=== PATIENT | female | born 1940 | race Two or more races ===

== ENCOUNTER 2017-08-19 12:35 | Emergency (ER) | payer OTHER ==
[2017-08-19 12:41] VITALS: BP 145/60; PULSE 64; TEMP 98.5; BMI 25.4
[2017-08-19] MEDS ORDERED: DIPHTH,PERTUSS(ACELL),TET 0.5 ML DISP.SYRIN IM ONE (13:01)
--- NOTE | 2017-08-19 13:15 | PDOC ---
History of Present Illness - General Chief Complaint: Injury Stated Complaint: FALL Time Seen by Provider: 08/19/17 12:45 History Source: Patient Exam Limitations: No Limitations - History of Present Illness Initial Comments: 08/19/17 16:33 stumbled with multiple heavy bags in her hands falling forward while attempting to get on bus. Patient landed on right wrist denies bleeding from nose or ears, denies any mental status changes. Denies LOC, denies nausea or vomiting. Is unable to flex and extend right wrist, has some mild tenderness to her left hand, and incurred a stellate laceration to her right upper lip through the vermilion border. Patient denies taking any type of anticoagulant or blood thinner Occurred: reports: just prior to arrival, this afternoon Severity: reports: moderate Pain Location: reports: face, upper extremity (right wrist, left hand) Method of Injury: Yes: fall Modifying Factors: improves with: cold therapy Loss of Consciousness: no loss of consciousness Associated Symptoms (Fall): headache Past History - Travel Traveled outside of the country in the last 30 days: No Close contact w/someone who was outside of country & ill: No - Past Medical History Allergies/Adverse Reactions: Allergies Allergy/AdvReac Type Severity Reaction Status Date / Time aspirin Allergy Severe Nausea Verified 08/19/17 13:27 Penicillins Allergy Severe Nausea Verified 08/19/17 13:27 Home Medications: Ambulatory Orders Acetaminophen W/ Codeine #3 [Tylenol # 3] 1 combo PO Q4H PRN #14 tablet MDD 6 Clindamycin [Cleocin -] 300 mg PO TID #21 capsule 08/19/17 COPD: No Hypercholesterolemia: Yes - Suicide/Smoking/Psychosocial Hx Smoking History: Never smoked Have you smoked in the past 12 months: No Information on smoking cessation initiated: No Hx Alcohol Use: No Drug/Substance Use Hx: No Substance Use Type: None Trauma Specific PMHX - Complaint Specific PMHX Back Injury: No Neck Injury: No Review of Systems - Review of Systems Able to Perform ROS?: Yes Is the patient limited Faroese proficient: Yes Constitutional: Yes: Symptoms Reported, See HPI, Malaise HEENTM: Yes: Symptoms Reported, See HPI, Mouth Pain, Mouth Swelling Respiratory: No: Symptoms reported ABD/GI: No: Symptoms Reported Musculoskeletal: Yes: Symptoms Reported, See HPI, Joint Pain (right wrist) Integumentary: Yes: Symptoms Reported, See HPI, Bruising, Flushing (stellate laceration to right upper lip), Lesions All Other Systems: Reviewed and Negative *Physical Exam - Vital Signs Last Vital Signs Temp Pulse Resp BP Pulse Ox 98.5 F 64 20 145/60 98 08/19/17 12:39 08/19/17 12:39 08/19/17 12:39 08/19/17 12:39 08/19/17 12:39 - Physical Exam General Appearance: Yes: Nourished, Appropriately Dressed, Apparent Distress, Mild Distress, Moderate Distress HEENT: positive: TMs Normal, Rhinorrhea, Other (stellate laceration with avulsion to upper right lip with stellate lack to inner gingival surface, probable cause from dental injury. Teeth are intact without any chipping or obvious loosening. Has full range of motion of jaw and TMJ. Nose is mildly tender but has no drainage from nose either nostril, no crepitus or step-offs along bridge, no orbital tenderness. Negative EOM.) Neck: negative: Tender Respiratory/Chest: positive: Lungs Clear Gastrointestinal/Abdominal: positive: Soft Extremity: positive: Normal Capillary Refill, Swelling, Other (deformity and immobility to right wrist, FROM to fingers with good sensation however unable to flex and extend at wrist joint with some deformity at distal radius and ulna. Pulses are palpable). 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 NML intact, Fully Oriented, Alert, Normal Mood/ Affect, Normal Response, Motor Strength 5/5 Procedures - Splinting Splint Location: Right: Wrist (dorsal ortho glass splint placed with sling) - Laceration/Wound Repair Right Lip Wound Length: to 2.5 cm Wound Explored: clean Wound's Depth, Shape: stellate Irrigated w/ Saline: Yes Betadine Prep: Yes Anesthesia: 1% Lidocaine w/ Epi Wound Repaired With: Sutures Suture Size/Type: 5:0 Number of Sutures: 5 Deep Layer Suture Size/Type: gut ED Treatment Course - RADIOLOGY Radiology Studies Ordered: Category Date Time Status WRIST W/HAND-LEFT* [RAD] Stat Radiology 08/19/17 13:00 Ordered Progress Note - Progress Note Progress Note: Status post fall with multiple contusions, stellate lip laceration that was repaired by myself. We'll start on oral clindamycin to cover oral pathogens with gum lac, right wrist fracture that was splinted. Discussed case with Dr. Antony who recommended splinting and will see patient this week for casting. *DC/Admit/Observation/Transfer Diagnosis at time of Disposition: Contusion, multiple sites Wrist fracture, right Qualifiers: Encounter type: initial encounter Fracture type: closed Qualified Code(s): S62.101A - Fracture of unspecified carpal bone, right wrist, initial encounter for closed fracture Laceration of lip Qualifiers: Encounter type: initial encounter Qualified Code(s): S01.511A - Laceration without foreign body of lip, initial encounter - Discharge Dispostion Disposition: HOME Condition at time of disposition: Stable Admit: No - Prescriptions Prescriptions: Acetaminophen W/ Codeine #3 [Tylenol # 3] 1 combo PO Q4H PRN #14 tablet MDD 6 PRN Reason: Pain Clindamycin [Cleocin -] 300 mg PO TID #21 capsule - Referrals Referrals: Asad Momin MD [Staff Physician] - - Patient Instructions Printed Discharge Instructions: DI for Wrist Fracture Additional Instructions: Rest, ice to area on and off for 15 minutes 4-6 times a day Avoid heavy lifting or exercise until pain and swelling is resolved or until further directed Keep area highly elevated to reduce swelling Use splints/Lauri wrap as directed Followup with orthopedist in one to 2 days for casting May use Tylenol with codeine, one or 2 tablets every 6 hours as needed for severe pain, understanding may make dizzy and sleepy and also constipated. The sutures in your mouth will dissolve within 1-2 weeks Rest, drink lots of fluids: Teas, water, soups Saltwater gargles/ keep mouth clean and rinse after each meal May use wet teabag for pain relief to area Avoid hard chewing foods, stick to ice cream, Jell-O, yogurt etc. Tylenol or Motrin for fever and pain Complete all medication as prescribed Seek dental appointment as soon as possible for evaluation of dental injury/pain Followup with private physician in one to 2 days as needed Return to emergency department for worsened symptoms, fevers, swelling to face or worsened pain - Post Discharge Activity
[2017-08-19] MEDS ORDERED: ACETAMINOPHEN 325 MG TABLET (FP) ONE (13:37)
[2017-08-19] MEDS ORDERED: ACETAMINOPHEN 500 MG TABLET (FP) PO ONE (13:43)
== END 2017-08-19 14:16 | disposition home or self-care (01) ==
LOC: JERFT 12:35
PROC: 0HQFXZZ Repair Right Hand Skin, External Approach (ICD-10-PCS; principal; 2017-08-19)
PROC: 2W3CX1Z Immobilization of Right Lower Arm using Splint (ICD-10-PCS; 2017-08-19)
PROC: 3E0234Z Introduction of Serum, Toxoid and Vaccine into Muscle, Percutaneous Approach (ICD-10-PCS; 2017-08-19)
DX: S62.101A Fracture of unspecified carpal bone, right wrist, initial encounter for closed fracture (principal); T14.8XXA Other injury of unspecified body region, initial encounter; W18.39XA Other fall on same level, initial encounter; Y93.89 Activity, other specified; Y92.410 Unspecified street and highway as the place of occurrence of the external cause; E78.00 Pure hypercholesterolemia, unspecified
CPT/HCPCS: 73110-TC-LT; 73130-TC-LT; 90715; 99282-25

== ENCOUNTER 2023-06-04 09:56 | Observation (INO) | payer OTHER ==
[2023-06-04] MEDS ORDERED: ACETAMINOPHEN 500 MG TABLET (FP) PO ONE (10:41)
[2023-06-04] MEDS ORDERED: ACETAMINOPHEN 325 MG TABLET (FP) ONE (10:54)
[2023-06-04 12:57] LABS: BASO % 0.3 % (0-2.0); HEMATOCRIT 36.4 % (32.4-45.2); HEMOGLOBIN 12.4 GM/dL (10.7-15.3); LYMPH % 4.4 % (8-40); MCH 32.4 pg (25.7-33.7); MCHC 34.1 g/dl (32.0-36.0); MEAN CELL VOLUME 95.2 fl (80-96); MEAN PLT VOLUME 8.3 fl (7.5-11.1); MONO % 4.9 % (3.8-10.2); NEUT % 90.4 % (42.8-82.8); PLATELET COUNT 370 10^3/uL (134-434); RBC 3.83 M/mm3 (3.60-5.2); RDW 14.3 % (11.6-15.6); WHITE BLOOD COUNT 18.2 K/mm3 (4.0-10.0)
[2023-06-04 13:04] LABS: INR 1.19 (0.83-1.09); PROTHROMBIN TIME (PATIENT) 13.8 SEC (9.7-13.0)
[2023-06-04 13:07] LABS: ACTIVATED PTT 33.8 SECONDS (25.2-36.5)
[2023-06-04 13:30] LABS: POTASSIUM 3.7 mmol/L (3.5-5.1)
[2023-06-04 13:32] LABS: ALBUMIN 4.2 g/dl (3.4-5.0); CALCIUM 9.4 mg/dL (8.5-10.1)
[2023-06-04 13:35] LABS: CREATININE 0.9 mg/dL (0.55-1.3)
[2023-06-04 13:37] LABS: BILIRUBIN,TOTAL 0.8 mg/dL (0.2-1); TOT PROT 7.6 g/dl (6.4-8.2)
[2023-06-04 14:53] LABS: EPI CELLS 22 /uL (0-25.1); HYALINE CASTS 1 /uL (0-3.1); URINE APPEARANCE CLEAR; URINE BACTERIA 21 /uL (0-1359); URINE BILIRUBIN NEGATIVE (NEGATIVE); URINE COLOR YELLOW; URINE GLUCOSE (UA) NEGATIVE (NEGATIVE); URINE KETONE NEGATIVE (NEGATIVE); URINE LEUK ESTERASE 2+ (NEGATIVE); URINE NITRITE NEGATIVE (NEGATIVE); URINE PROTEIN NEGATIVE (NEGATIVE); URINE RBC 15 /uL (0-23.9); URINE UROBILINOGEN 0.2 mg/dL (0.2-1.0); URINE WBC 30 /uL (0-25.8)
[2023-06-04] MEDS ORDERED: LIDOCAINE 5% TOPICAL PATCH TP ONE (15:56)
[2023-06-04] MEDS ORDERED: CEFTRIAXONE 1,000 MG in DEXTROSE 5%-WATER - 50 ML IVPB ONE (16:19)
[2023-06-04] MEDS ORDERED: CEFTRIAXONE 1 GM/50 ML BAG ONE (16:53)
[2023-06-04] MEDS ORDERED: LIDOCAINE 4% PATCH TP ONE (17:21)
[2023-06-04] MEDS ORDERED: LIDOCAINE PATCH REMOVAL MC ONE (22:00)
[2023-06-05] MEDS ORDERED: AZTREONAM 1 GM in DEXTROSE 5%-WATER - 50 ML IVPB SCH ×2 (01:00→10:00)
[2023-06-05] MEDS: ACETAMINOPHEN 325 MG TABLET (FP) PO PRN ×2 (05:22→15:32)
[2023-06-05 07:03] VITALS: BMI 19.1
[2023-06-05] MEDS ORDERED: CEFTRIAXONE 1 GM in DEXTROSE 5%-WATER - 50 ML IVPB SCH (10:00)
[2023-06-05] MEDS ORDERED: ENOXAPARIN NA (PORCINE) 40 MG/0.4 ML DISP.SYRIN SQ SCH (10:00)
[2023-06-05 11:10] LABS: BASO % 0.7 % (0-2.0); EOS % 0.1 % (0-4.5); HEMATOCRIT 37.3 % (32.4-45.2); HEMOGLOBIN 12.4 GM/dL (10.7-15.3); LYMPH % 11.1 % (8-40); MCHC 33.1 g/dl (32.0-36.0); MEAN CELL VOLUME 96.6 fl (80-96); MEAN PLT VOLUME 8.1 fl (7.5-11.1); MONO % 10.8 % (3.8-10.2); NEUT % 77.3 % (42.8-82.8); PLATELET COUNT 352 10^3/uL (134-434); RBC 3.86 M/mm3 (3.60-5.2); RDW 14.2 % (11.6-15.6); WHITE BLOOD COUNT 9.6 K/mm3 (4.0-10.0)
[2023-06-05 11:43] LABS: POTASSIUM 4.4 mmol/L (3.5-5.1)
[2023-06-05 11:59] LABS: ALBUMIN 3.8 g/dl (3.4-5.0); PHOSPHOROUS 3.5 mg/dL (2.5-4.9)
[2023-06-05 12:00] LABS: BILIRUBIN,TOTAL 1.6 mg/dL (0.2-1); BLOOD UREA NITROGEN 12.6 mg/dL (7-18); TOT PROT 7.5 g/dl (6.4-8.2)
[2023-06-05 12:02] LABS: CREATININE 0.8 mg/dL (0.55-1.3)
[2023-06-05 12:06] LABS: CALCIUM 9.5 mg/dL (8.5-10.1)
[2023-06-05 12:07] LABS: MAGNESIUM 2.1 mg/dL (1.8-2.4)
[2023-06-05] MEDS ORDERED: AZTREONAM 1 GM VIAL (RESTRICTED TO ID) ONE (17:38)
[2023-06-05] MEDS: AZTREONAM 1 GM in DEXTROSE 5%-WATER - 50 ML IVPB SCH (17:47)
[2023-06-05 18:22] VITALS: RESP 18
[2023-06-05] MEDS ORDERED: amLODIPine BESYLATE 10 MG TABLET (FP) PO SCH (22:00)
[2023-06-06] MEDS: AZTREONAM 1 GM in DEXTROSE 5%-WATER - 50 ML IVPB SCH ×2 (02:16→09:24)
[2023-06-06 09:28] LABS: BASO % 0.5 % (0-2.0); EOS % 0.3 % (0-4.5); HEMATOCRIT 36.3 % (32.4-45.2); HEMOGLOBIN 12.2 GM/dL (10.7-15.3); LYMPH % 11.6 % (8-40); MCH 32.6 pg (25.7-33.7); MCHC 33.7 g/dl (32.0-36.0); MEAN CELL VOLUME 96.8 fl (80-96); NEUT % 77.6 % (42.8-82.8); PLATELET COUNT 337 10^3/uL (134-434); RBC 3.75 M/mm3 (3.60-5.2); RDW 14.2 % (11.6-15.6); WHITE BLOOD COUNT 10.4 K/mm3 (4.0-10.0)
[2023-06-06 09:43] LABS: POTASSIUM 4.7 mmol/L (3.5-5.1)
[2023-06-06 09:54] LABS: CALCIUM 9.5 mg/dL (8.5-10.1)
[2023-06-06 09:55] LABS: ALBUMIN 3.8 g/dl (3.4-5.0); BLOOD UREA NITROGEN 17.9 mg/dL (7-18); MAGNESIUM 2.1 mg/dL (1.8-2.4)
[2023-06-06 09:57] LABS: CREATININE 0.7 mg/dL (0.55-1.3)
[2023-06-06 09:59] LABS: BILIRUBIN,TOTAL 1.4 mg/dL (0.2-1); TOT PROT 7.3 g/dl (6.4-8.2)
[2023-06-06 13:01] VITALS: BP 143/65; PULSE 74; TEMP 98.1
== END 2023-06-06 01:45 | disposition home health service (06) ==
LOC: JER 09:56 → JERBED 14:59 → J8W 20:25
PROVIDERS: ADMIT Internal Medicine; ATTEND Nurse Practitioner Acute Care
DX: N39.0 Urinary tract infection, site not specified (principal); G93.41 Metabolic encephalopathy; I10 Essential (primary) hypertension; T14.8XXA Other injury of unspecified body region, initial encounter; X58.XXXA Exposure to other specified factors, initial encounter; Y93.89 Activity, other specified; Y92.89 Other specified places as the place of occurrence of the external cause; E46 Unspecified protein-calorie malnutrition; Z88.0 Allergy status to penicillin; Z88.8 Allergy status to other drugs, medicaments and biological substances
CPT/HCPCS: 36415; 70450-TC; 71045-TC-FY; 72125-TC; 72131-TC; 72192-TC; 80053; 81003; 83735; 84100; 85025; 85610; 85730; 87040; 87086; 93005; 93010; 93306-TC; 96365; 96366; 96367; 97116-GP; 97161-GP; 99285-25; G0378

== ENCOUNTER 2023-06-09 14:18 | Emergency (ER) | payer OTHER ==
[2023-06-09 15:30] VITALS: BP 165/63; PULSE 66; RESP 18; TEMP 98; BMI 19.5
[2023-06-09] MEDS ORDERED: ACETAMINOPHEN 500 MG TABLET (FP) PO ONE (15:53)
[2023-06-09] MEDS ORDERED: LIDOCAINE 5% TOPICAL PATCH TP ONE (15:53)
[2023-06-09] MEDS ORDERED: ACETAMINOPHEN 325 MG TABLET (FP) ONE (16:21)
[2023-06-09] MEDS ORDERED: LIDOCAINE 4% PATCH TP ONE (16:21)
[2023-06-09] MEDS ORDERED: IBUPROFEN 400 MG TABLET (FP) PO ONE ×3 (17:06→18:15)
[2023-06-09] MEDS ORDERED: LIDOCAINE PATCH REMOVAL MC SCH (22:00)
== END 2023-06-09 19:53 | disposition home or self-care (01) ==
LOC: JER 14:18
DX: M54.50 Low back pain, unspecified (principal); R26.2 Difficulty in walking, not elsewhere classified
CPT/HCPCS: 99283-25

== ENCOUNTER 2024-04-21 12:47 | Observation (INO) | payer OTHER ==
[2024-04-21 14:04] LABS: BASO % 1.2 % (0-2.0); EOS % 0.5 % (0-4.5); HEMATOCRIT 35.4 % (32.4-45.2); HEMOGLOBIN 11.6 GM/dL (10.7-15.3); LYMPH % 19.5 % (8-40); MCH 32.3 pg (25.7-33.7); MCHC 32.8 g/dl (32.0-36.0); MEAN CELL VOLUME 98.6 fl (80-96); MEAN PLT VOLUME 8.1 fl (7.5-11.1); MONO % 9.3 % (3.8-10.2); NEUT % 69.5 % (42.8-82.8); PLATELET COUNT 323 10^3/uL (134-434); RBC 3.59 M/mm3 (3.60-5.2); RDW 13.9 % (11.6-15.6); WHITE BLOOD COUNT 7.2 K/mm3 (4.0-10.0)
[2024-04-21 14:18] LABS: POTASSIUM 4.8 mmol/L (3.5-5.1)
[2024-04-21 14:19] LABS: ACTIVATED PTT 30.2 SECONDS (25.2-36.5); INR 1.16 (0.83-1.09)
[2024-04-21 14:20] LABS: BLOOD UREA NITROGEN 14.3 mg/dL (7-18); CALCIUM 9.6 mg/dL (8.5-10.1); MAGNESIUM 2.1 mg/dL (1.8-2.4)
[2024-04-21 14:24] LABS: CREATININE 0.8 mg/dL (0.55-1.3)
[2024-04-21 14:25] LABS: BILIRUBIN,TOTAL 1.4 mg/dL (0.2-1); TOT PROT 7.1 g/dl (6.4-8.2)
[2024-04-21 16:30] LABS: EPI CELLS >36 /uL (0-25.1); HYALINE CASTS 7 /uL (0-3.1); URINE APPEARANCE CLOUDY; URINE BACTERIA 622 /uL (0-1359); URINE BILIRUBIN NEGATIVE (NEGATIVE); URINE COLOR YELLOW; URINE GLUCOSE (UA) NEGATIVE (NEGATIVE); URINE KETONE NEGATIVE (NEGATIVE); URINE LEUK ESTERASE 3+ (NEGATIVE); URINE NITRITE NEGATIVE (NEGATIVE); URINE PROTEIN NEGATIVE (NEGATIVE); URINE WBC 94 /uL (0-25.8)
[2024-04-21] MEDS ORDERED: CEFTRIAXONE 1 GM/50 ML BAG ONE (16:39)
[2024-04-21] MEDS: CEFTRIAXONE 1,000 MG in DEXTROSE 5%-WATER - 50 ML IVPB ONE (16:45)
[2024-04-21 17:05] LABS: CALCIUM 9.7 mg/dL (8.5-10.1)
[2024-04-21 17:06] LABS: BLOOD UREA NITROGEN 12.7 mg/dL (7-18)
[2024-04-21 17:09] LABS: CREATININE 0.8 mg/dL (0.55-1.3)
[2024-04-21 20:12] LABS: URINE RBC 134.1 /uL (0-23.9)
[2024-04-21 20:29] LABS: BILIRUBIN,DIRECT 0.3 mg/dL (0.0-0.2)
[2024-04-21] MEDS: QUEtiapine FUMARATE 25 MG TABLET PO SCH (22:39)
[2024-04-21] MEDS: LORazepam 2 MG/ML SDV VIAL IVPUSH ONE (23:02)
[2024-04-22] MEDS: ENOXAPARIN NA (PORCINE) 40 MG/0.4 ML DISP.SYRIN SQ SCH (09:53)
[2024-04-22] MEDS: CEFTRIAXONE 1 GM in DEXTROSE 5%-WATER - 50 ML IVPB SCH (09:53)
[2024-04-22 10:00] LABS: HEMATOCRIT 37.2 % (32.4-45.2); HEMOGLOBIN 12.4 GM/dL (10.7-15.3); MCH 32.6 pg (25.7-33.7); MCHC 33.3 g/dl (32.0-36.0); MEAN CELL VOLUME 98.1 fl (80-96); MEAN PLT VOLUME 8.2 fl (7.5-11.1); PLATELET COUNT 324 10^3/uL (134-434); RDW 14.5 % (11.6-15.6); WHITE BLOOD COUNT 6.6 K/mm3 (4.0-10.0)
[2024-04-22 10:20] LABS: POTASSIUM 4.2 mmol/L (3.5-5.1)
[2024-04-22 10:27] LABS: BLOOD UREA NITROGEN 14.5 mg/dL (7-18); CALCIUM 9.8 mg/dL (8.5-10.1)
[2024-04-22 10:31] LABS: CREATININE 0.8 mg/dL (0.55-1.3)
[2024-04-22 14:14] VITALS: BMI 19.1
[2024-04-22] MEDS ORDERED: MELATONIN 5 MG TABLETS PO PRN (17:21)
[2024-04-23 08:33] LABS: HEMATOCRIT 36.8 % (32.4-45.2); HEMOGLOBIN 12.1 GM/dL (10.7-15.3); MCH 32.4 pg (25.7-33.7); MCHC 32.9 g/dl (32.0-36.0); MEAN CELL VOLUME 98.5 fl (80-96); MEAN PLT VOLUME 8.1 fl (7.5-11.1); PLATELET COUNT 298 10^3/uL (134-434); RBC 3.74 M/mm3 (3.60-5.2); RDW 14.3 % (11.6-15.6); WHITE BLOOD COUNT 4.6 K/mm3 (4.0-10.0)
[2024-04-23 08:50] LABS: POTASSIUM 4.1 mmol/L (3.5-5.1)
[2024-04-23 08:57] LABS: ALBUMIN 3.6 g/dl (3.4-5.0)
[2024-04-23 09:00] LABS: CALCIUM 9.5 mg/dL (8.5-10.1); CREATININE 0.8 mg/dL (0.55-1.3); MAGNESIUM 2.2 mg/dL (1.8-2.4)
[2024-04-23 09:01] LABS: PHOSPHOROUS 3.5 mg/dL (2.5-4.9)
[2024-04-23 09:02] LABS: BILIRUBIN,TOTAL 1.1 mg/dL (0.2-1); TOT PROT 6.6 g/dl (6.4-8.2)
[2024-04-24] MEDS: ACETAMINOPHEN 325 MG TABLET (FP) PO PRN (16:11)
[2024-04-25 14:42] VITALS: RESP 18
[2024-04-25 18:28] VITALS: PULSE 63
[2024-04-26] VITALS: BP 99/63; TEMP 98.6
== END 2024-04-25 22:45 ==
LOC: JER 12:47 → JERBED 14:56 → J5S 20:58
PROVIDERS: ADMIT Internal Medicine; ATTEND Internal Medicine
PROC: 3E03329 Introduction of Other Anti-infective into Peripheral Vein, Percutaneous Approach (ICD-10-PCS; principal; 2024-04-21)
PROC: 3E023GC Introduction of Other Therapeutic Substance into Muscle, Percutaneous Approach (ICD-10-PCS; 2024-04-21)
PROC: 3E033NZ Introduction of Analgesics, Hypnotics, Sedatives into Peripheral Vein, Percutaneous Approach (ICD-10-PCS; 2024-04-21)
DX: G93.41 Metabolic encephalopathy (principal); R90.82 White matter disease, unspecified; R29.6 Repeated falls; M48.56XA Collapsed vertebra, not elsewhere classified, lumbar region, initial encounter for fracture; X58.XXXA Exposure to other specified factors, initial encounter; E27.9 Disorder of adrenal gland, unspecified; Z88.0 Allergy status to penicillin; Z88.8 Allergy status to other drugs, medicaments and biological substances; Z91.011 Allergy to milk products
CPT/HCPCS: 0241U-QW; 36415; 70450-TC; 71260-TC; 72125-TC; 74177-TC; 80048; 80053; 81003; 82248; 82607; 82962; 83735; 84100; 84443; 84484; 85025; 85027; 85610; 85730; 86780; 87086; 87635; 93005; 93010; 96365; 96366; 96372; 96375; 97116-GP; 97161-GP; 99285-25; G0378; Q9967

== ENCOUNTER 2024-06-23 19:21 | Emergency (ER) | payer OTHER ==
[2024-06-23 19:49] VITALS: TEMP 97.4; BMI 20.6
[2024-06-23] MEDS ORDERED: ACETAMINOPHEN 325 MG TABLET (FP) ONE (20:01)
[2024-06-23] MEDS: ACETAMINOPHEN 325 MG TABLET (FP) PO ONE (20:17)
[2024-06-23 20:24] LABS: BASO % 0.7 % (0-2.0); EOS % 0.7 % (0-4.5); HEMATOCRIT 39.3 % (32.4-45.2); HEMOGLOBIN 13.1 GM/dL (10.7-15.3); LYMPH % 15.8 % (8-40); MCH 32.9 pg (25.7-33.7); MCHC 33.2 g/dl (32.0-36.0); MEAN CELL VOLUME 99.1 fl (80-96); MEAN PLT VOLUME 8.7 fl (7.5-11.1); MONO % 11.9 % (3.8-10.2); NEUT % 70.9 % (42.8-82.8); PLATELET COUNT 367 10^3/uL (134-434); RBC 3.97 M/mm3 (3.60-5.2); RDW 14.7 % (11.6-15.6); WHITE BLOOD COUNT 9.4 K/mm3 (4.0-10.0)
[2024-06-23 20:42] LABS: POTASSIUM 4.3 mmol/L (3.5-5.1)
[2024-06-23 20:44] LABS: CALCIUM 9.7 mg/dL (8.5-10.1)
[2024-06-23 20:45] LABS: ALBUMIN 3.9 g/dl (3.4-5.0); BLOOD UREA NITROGEN 24.4 mg/dL (7-18)
[2024-06-23 20:48] LABS: CREATININE 1.1 mg/dL (0.55-1.3)
[2024-06-23 20:49] LABS: BILIRUBIN,TOTAL 0.5 mg/dL (0.2-1)
[2024-06-23 21:38] LABS: PH,URINE 6.5 (5.0-8.0); URINE APPEARANCE CLEAR; URINE BILIRUBIN NEGATIVE (NEGATIVE); URINE COLOR YELLOW; URINE GLUCOSE (UA) NEGATIVE (NEGATIVE); URINE KETONE NEGATIVE (NEGATIVE); URINE LEUK ESTERASE NEGATIVE (NEGATIVE); URINE NITRITE NEGATIVE (NEGATIVE); URINE PROTEIN NEGATIVE (NEGATIVE); URINE UROBILINOGEN 0.2 mg/dL (0.2-1.0)
[2024-06-23] MEDS: SODIUM CHLORIDE 0.9% 500 ML INFUS.BAG IV ONE (21:43)
[2024-06-24 00:46] VITALS: BP 160/60; PULSE 60; RESP 18
== END 2024-06-24 04:35 | disposition home or self-care (01) ==
LOC: JER 19:21
DX: R51.9 Headache, unspecified (principal); R09.81 Nasal congestion; R07.89 Other chest pain; W06.XXXA Fall from bed, initial encounter
CPT/HCPCS: 36415; 70450-TC; 71045-TC-FY; 72125-TC; 72170-TC-FY; 80053; 81003; 85025; 87086; 99285-25